=== PATIENT | male | born 1975 | race Caucasian/White ===

== ENCOUNTER 2016-10-15 11:39 | Emergency (ER) | payer SELFPAY ==
[~2016-10-15] VITALS: Ht 175.3 cm; Wt 90.0 kg
[2016-10-15 11:47] VITALS: Ht 175.3 cm; Wt 90.0 kg
--- NOTE | 2016-10-15 20:44 | ERD ---
ER Documentation Chief Complaint Date/Time DATE: 10/15/16 TIME: 20:33 Chief Complaint RIGHT FOOT PAIN AND SWELLING.FOR SPLINT REMOVAL HPI 40 year old male presents to ER for removal of right leg splint. Patient states that 5 days ago he was walking and tripped and fell down stairs. At that time, patient was seen in an outside facility for possible fracture of right ankle and a posterior splint was applied at that time . An xray and CT scan were done in the outside facility however results were not available at that time, according to patient. Patient states he no longer has pain and would like to remove the posterior splint. According to the patient, he retrieved the results days later that reveals no fracture, dislocation or abnormality. Has been taking [place] and ibuprofen for pain. No numbness/ tingling or loss of sensation per patient. No increase in pain. ROS All systems reviewed and are negative except as per history of present illness. PMhx/Soc Medical and Surgical Hx: pt denies Medical Hx, pt denies Surgical Hx Hx Alcohol Use: Yes (socially) Hx Substance Use: No Hx Tobacco Use: Yes (5 sticks/day) Smoking Status: Current every day smoker Physical Exam Vitals Vital Signs Date Time Temp Pulse Resp B/P Pulse Ox O2 Delivery O2 Flow Rate FiO2 10/15/16 11:47 97.7 86 18 152/73 98 Physical Exam Const: NAD Head: Atraumatic Eyes: Normal Conjunctiva ENT: Normal External Ears, Nose and Mouth. Neck: Full range of motion..~ No meningismus. Resp: Clear to auscultation bilaterally Cardio: Regular rate and rhythm, no murmurs Abd: Soft, non tender, non distended. Normal bowel sounds Skin: No petechiae or rashes Back: No midline or flank tenderness Ext: 1+ edema to right foot. Full active and passive range of motion of right ankle and foot. Full sensation. Neurovascularly intact. Pedal pulses palpable bilaterally. Neur: Awake and alert Psych: Normal Mood and Affect Procedures/MDM ED course Posterior splint removed and patient neurovascularly intact. No indication for pain medication as patient is currently denying pain. Denies calf pain or tenderness. ENMANUEL wrap applied and patient remains neurovascularly intact. Exam reveals swelling to right foot but otherwise unremarkable. Full mobility to right lower extremity. Able to bear weight without pain or difficulty. Low suspicion for compartment syndrome, acute dislocation or fracture. Patient is appropriate for outpatient management and instructed to continue taking [place] and ibuprofen as needed for pain as previously prescribed. Instructed patient to follow up with orthopedic physician if he continues to have pain. Return to Ed for any new or worsening symptoms. Patient verbalizes understanding. All questions answered at discharge. Departure Diagnosis: Primary Impression: Ankle injury Encounter type: initial encounter Laterality: right Qualified Code: S99.911A - Ankle injury, right, initial encounter Condition: Stable Patient Instructions: Sprain Foot Referrals: [facility] Ur[facility] 7 a.m.- 11 p.m. Every Day of the Week NO APPOINTMENT OR AUTHORIZATION NEEDED Additional Instructions: Call your primary care doctor TOMORROW for an appointment during the next 2-3 days.See the doctor sooner or return here if your condition worsens before your appointment time. Return to ED for any high fever, chest pain, difficulty breathing, shortness breath, wheezing, vomiting, diarrhea, abdominal pain or any new or worsening symptoms. ROSE MARY BOJORQUEZ NP Oct 15, 2016 20:44
== END 2016-10-15 14:54 | disposition home or self-care (01) ==
LOC: FTE 11:39
DX: S99.911A Unspecified injury of right ankle, initial encounter (principal); F17.210 Nicotine dependence, cigarettes, uncomplicated; W10.9XXA Fall (on) (from) unspecified stairs and steps, initial encounter; Y92.9 Unspecified place or not applicable
CPT/HCPCS: 99282